=== PATIENT | female | born 1960 | race Caucasian/White ===

== ENCOUNTER 2017-03-28 18:17 | Emergency (ER) | payer MEDICAID ==
[~2017-03-28] VITALS: Ht 157.5 cm; Wt 69.8 kg
[2017-03-28 19:00] VITALS: BP 186/86
== END 2017-03-28 19:00 | disposition home or self-care (01) ==
LOC: ED 18:17
DX: M77.02 Medial epicondylitis, left elbow (principal); M77.01 Medial epicondylitis, right elbow; I10 Essential (primary) hypertension